=== PATIENT | female | born 2000 | race Hispanic/Latino ===

== ENCOUNTER 2025-03-28 20:45 | Observation (INO) | payer MEDICAID ==
[~2025-03-28 20:45] MED LIST: Iopamidol-370 76% 500 ML MDV (1 ML CHARGE) ONE
[2025-03-28] MEDS ORDERED: Famotidine/PF 20 mg/2ml Vial ONE (21:36)
[2025-03-28] MEDS ORDERED: Ondansetron PF 4 MG/2 ML Vial ONE (21:36)
[2025-03-28 22:13] LABS: #Basophils 0.03 10x3/uL (0.0-0.2); #Eosinophils 0.16 10x3/uL (0.0-0.7); #Monocytes 0.56 10x3/uL (0.11-0.59); #Neutrophils 6.47 10x3/uL (1.40-6.50); %Basophils 0.3 % (0.0-1.0); %Eosinophils 1.6 % (0.0-10.0); %Lymphocytes 26.8 % (21.0-51.0); %Monocytes 5.7 % (0.0-10.0); %Neutrophils 65.3 % (42.0-75.0); Hematocrit 38.7 % (36.0-47.0); Hemoglobin 12.6 g/dL (12.0-16.0); Mean Corpuscular Hemoglobin 25.7 pg (27.0-31.0); Mean Corpuscular Volume 78.8 fL (78.0-98.0); Platelet Count 502 10x3/uL (130-400); Red Blood Cell (RBC) Count 4.91 mill/uL (4.20-5.40); White Blood Cell (WBC) Count 9.91 10x3/uL (4.8-10.8)
[2025-03-28] MEDS ORDERED: Ketorolac Tromethamine 30 MG (1 mL) VIAL ONE (22:13)
[2025-03-28] MEDS ORDERED: diphenhydrAMINE 50 MG/ML VIAL ONE (22:14)
[2025-03-28] MEDS ORDERED: Metoclopramide HCl 10 MG (2 mL) VIAL ONE (22:14)
[2025-03-28 22:22] LABS: BHCG - Serum Negative (NEGATIVE); Pregs Control Background? CLEAR/WHITE (CLR/WHITE); Pregs Control Bar Appear? YES (CONTROL BAR)
[2025-03-28 22:29] LABS: ALT (SGPT) 126 U/L (Less than 34); AST (SGOT) 77 U/L (11-34); Albumin 4.1 g/dL (3.1-4.5); Alkaline Phosphatase 183 U/L (40-110); Anion Gap 16 mmol/L (10-20); BUN (Urea Nitrogen) 10 mg/dL (7.0-18.7); Bilirubin, Total 0.2 mg/dL (0.3-1.2); Calc. Creatinine Clearance 0 mL/min (70-130); Calcium 9.4 mg/dL (7.8-10.44); Carbon Dioxide 22 mmol/L (22-29); Chloride 102 mmol/L (98-107); Globulin 4.2 g/dL (2.4-3.5); Glucose 98 mg/dL (70-105); Lipase 23 U/L (8-78); Magnesium 1.9 mg/dL (1.6-2.6); Potassium 3.8 mmol/L (3.5-5.1); Sodium 136 mmol/L (136-145)
[2025-03-29 00:37] LABS: CAUTI Indications for Culture Pelvic or flank pain; Glucose, Urine (Dipstick) Normal (Negative); Leukocyte Negative Leu/uL (Negative); Protein, Urine (Dipstick) Negative (Neg-Trace); RBC/HPF 0-3 HPF (0-3); Specific Gravity, Urine 1.014 (1.002-1.036); WBC/HPF 0-3 HPF (0-3)
[2025-03-29 00:45] LABS: Bacteria/HPF 1+ HPF (None Seen); Urine Culture Reflex No No
[2025-03-29] MEDS ORDERED: Ondansetron PF 4 MG/2 ML Vial IVP PRN (02:24)
[2025-03-29] MEDS ORDERED: Dextrose 50% Abboject 50 ML SYRINGE SLOW IVP PRN (02:24)
[2025-03-29] MEDS ORDERED: Acetaminophen 325 MG TAB PO PRN (02:24)
[2025-03-29] MEDS ORDERED: Glucagon 1 MG/ML KIT IM PRN (02:24)
[2025-03-29] MEDS ORDERED: hydrALAZINE 20 MG/ML VIAL SLOW IVP PRN (02:24)
[2025-03-29] MEDS ORDERED: HYDROcodone/Acetaminophen 5/325 mg Tablet PO PRN (02:24)
[2025-03-29 04:17] VITALS: BMI 27.9
[2025-03-29] MEDS ORDERED: Famotidine 20 MG TAB PO SCH (09:00)
[2025-03-29] MEDS ORDERED: Famotidine/PF 20 mg/2ml Vial SLOW IVP SCH (09:00)
[2025-03-29 09:16] VITALS: BP 90/56; TEMP 97.9
== END 2025-03-29 10:13 | disposition home or self-care (01) ==
LOC: ERS 20:45 → T4-A 03-29 02:29
PROVIDERS: ADMIT Surgery; ATTEND Surgery
DX: K82.4 Cholesterolosis of gallbladder (principal); K82.8 Other specified diseases of gallbladder; Z87.59 Personal history of other complications of pregnancy, childbirth and the puerperium
CPT/HCPCS: 74177; 76705; 80053; 81001; 83690; 83735; 84703; 85025; J1200; J1308; J1885; J2405; J2765; J3010; J7120; Q9967